=== PATIENT | female | born 1965 | race Two or more races ===

== ENCOUNTER → 2025-11-14 07:16 | Outpatient (REF) | payer OTHER, SELFPAY | LOC: MRI 07:16 | PROVIDERS: ATTENDING PHYSICIAN Physical Medicine & Rehabilitation; FAMILY PHYSICIAN Family Medicine | DX: M54.16 Radiculopathy, lumbar region (principal); M48.062 Spinal stenosis, lumbar region with neurogenic claudication; M54.50 Low back pain, unspecified; M54.17 Radiculopathy, lumbosacral region | CPT/HCPCS: 72148 ==